=== PATIENT | female | born 1975 | race Caucasian/White ===

== ENCOUNTER 2018-02-23 13:16 | Emergency (ER) | payer MEDICAID ==
[~2018-02-23] VITALS: Ht 167.6 cm; Wt 87.0 kg
[2018-02-23] MEDS ORDERED: VISCOUS LIDOCAINE 2% 15 ML UDC PO STA (14:41)
[2018-02-23] MEDS ORDERED: DICYCLOMINE 10 MG/5 ML ORAL SYR PO STA (14:41)
[2018-02-23] MEDS ORDERED: MAGNESIUM/ALUMINUM HYDROXIDE/SIMETHICONE 30ML UDC PO STA (14:41)
[2018-02-23] MEDS ORDERED: FAMOTIDINE 20MG TABLET PO ONE (14:45)
[2018-02-23 15:58] VITALS: BP 121/76
== END 2018-02-23 16:02 | disposition home or self-care (01) ==
LOC: ER 13:16
DX: K21.9 Gastro-esophageal reflux disease without esophagitis (principal)
CPT/HCPCS: 81025; 93005; 99284